=== PATIENT | female | born 1990 | race Caucasian/White ===

== ENCOUNTER 2022-08-16 10:33 | Emergency (ER) | payer BC ==
--- OUTSIDE RECORDS SUMMARY | 2022-08-16 10:37 | XMS REPORT | Continuity of Care Document ---
:1990 Author Organization [facility] t Address [address] [place] [place] [address] Care Team Providers Name Role Phone Gunnar TROY, [facility] Primary Care Physician [phone] Con Peralta MD Attending Clinician MD CNO PERALTA Attending Clinician Unavailable Shasta Steward MD Attending Clinician Kalpana Reynolds MD Attending Clinician [phone] MD KALPANA REYNOLDS Attending Clinician Unavailable MD CON PERALTA Admitting Clinician Unavailable MD KALPANA REYNOLDS Admitting Clinician Unavailable Payers Payer Name Policy Type Policy Number Effective Date Expiration Date S ource Problems This patient has no known problems. Allergies, Adverse Reactions, Alerts Allergy Allergy Status Severity Reaction(s) Onset Inactive Treating Comm ents Source Name Type Date Date Clinician Ciproflo Propensi Active Rash 2020-04 [facility] xacin ty to [facility] adverse 00:00: Hospita reaction 00 l s to drug Doxycycl Propensi Active Rash 2020-04 [facility] ine ty to 0-06 [facility] adverse 00:00: Hospita reaction 00 l s to drug Social History Social Habit Start Date Stop Date Quantity Comments Source Gender identity [facility] Alcohol intake 2021-04-13 2021-04-13 Current [facility] 00:00:00 00:00:00 non-drinker of Hospital alcohol (finding) History of Social 2021-04-13 2021-04-[address] function 00:00:00 00:00:00 Hospital Tobacco use and 2017-02-19 2017-02-19 Smokeless [facility] exposure 00:00:00 00:00:00 tobacco non-user Hospital Sex Assigned At [birth year] [facility] 00[facility] Smoking Status Start Date Stop Date Source Never smoked tobacco [facility] Medications Ordered Filled Start Stop Current Ordering Indication Dosage Frequency Signature Comments Components Source Medication Medication Date Date Medication? Clinician (SIG) Name Name venlafaxine Yes 75mg QD Take 75 mg [facility] (EFFEXOR) 1-[address] 75 MG 07:23: daily. Hospita tablet 01 l venlafaxine Yes 75mg QD Take 75 mg [facility] (EFFEXOR) 1-[address] 75 MG 07:23: daily. Hospita tablet 01 l norethindro 2020-04 Yes .35mg Take 0.35 [facility] ne 0-[address] (MICRONOR) 08:26: mouth. Hospi ta 0.35 mg 39 l tablet norethindro 2020-04 Yes .35mg Take 0.35 [facility] ne 0-[address] (MICRONOR) 08:26: mouth. Hospi ta 0.35 mg 39 l tablet tobramycin 2020-04 Yes INSTILL Meth aminta (TOBREX) 0-03 ONE (1) st 0.3 % drops 00:00: DROP TO Hos dagoberto 00 LEFT EYE l THREE TIMES A DAY FOR 4 DAYS. tobramycin 2020-04 Yes INSTILL Meth aminta (TOBREX) 0-03 ONE (1) st 0.3 % drops 00:00: DROP TO Hos dagoberto 00 LEFT EYE l THREE TIMES A DAY FOR 4 DAYS. polymyxin B Yes APPLY 2 Met [facility] sulf-trimet 9-[address] hoprim 00:00: (OPHTHALMI Hospi ta (POLYTRIM) 00 C (EYE)) l 10,000 EVERY 2 unit- 1 HOURS FOR mg/mL drops 7 DAYS USE ON BOTH EYES. polymyxin B Yes APPLY 2 Met [facility] sulf-trimet 9-[address] hoprim 00:00: (OPHTHALMI Hospi ta (POLYTRIM) 00 C (EYE)) l 10,000 EVERY 2 unit- 1 HOURS FOR mg/mL drops 7 DAYS USE ON BOTH EYES. Vyvanse 10 Yes 1{capsu QD Take 1 Me [facility] mg capsule 9-18 le} capsule by st 00:00: mouth Hospita 00 daily. l Vyvanse 10 Yes 1{capsu QD Take 1 Me [facility] mg capsule 9-18 le} capsule by st 00:00: mouth Hospita 00 daily. l Vital Signs Vital Name Observation Time Observation Value Comments Source Systolic blood 2021-04-13 12:19:00 132 mm[Hg] [facility] pressure Diastolic blood 2021-04-13 12:19:00 75 mm[Hg] [facility] pressure Respiratory rate 2021-04-13 12:19:00 18 /min [facility] Oxygen saturation in 2021-04-13 12:19:00 98 /min [facility] Arterial blood by Pulse oximetry Heart rate 2021-04-13 10:39:00 101 /min [facility] Body temperature 2021-04-13 10:39:00 37.06 [facility] Body height 2021-04-13 10:36:00 162.6 cm [facility] Body weight 2021-04-13 10:36:00 142.883 kg [facility] BMI 2021-04-13 10:36:00 54.07 kg/m2 [facility] Procedures Procedure Date / Time Performing Clinician Source Performed XR NECK SOFT TISSUE 2021-04-13 12:31:49 [facility] GROUP A STREP, RAPID 2021-04-13 12:16:00 [facility] ANTIGEN COVID-19 QUALITATIVE 2021-04-13 12:16:00 [facility] RT-PCR STREP SCREEN CULTURE 2021-04-13 12:16:00 [facility] ED REFERRAL TO [place] 2021-01-14 15:01:51 Kalpana Reynolds [facility] JESSICA PHYSICIAN [place] SILVA CT LUMBAR SPINE WO 2021-01-14 14:37:42 Kalpana Reynolds [facility] CONTRAST [place] CT ABDOMEN PELVIS WO 2021-01-14 14:31:56 Kalpana Reynolds [facility] CONTRAST [place] URINE CULTURE 2021-01-14 13:34:00 Kalpana Reynolds [facility] osceleste [facility]ru[facility] HC COMPLETE BLD COUNT 2021-01-14 13:24:00 Reynolds [facility] W/AUTO DIFF [place] COMPREHENSIVE METABOLIC 2021-01-14 13:24:00 Kalpana Reynolds [facility] PANEL [place] HCG QUALITATIVE, SERUM 2021-01-14 13:24[facility] [place] TR[facility]IN 2021-01-14 13:24:00 Kalpana Reynolds [facility] osceleste [facility] ESTIMATED GFR 2021-01-14 13:24:00 Kalpana Reynolds [facility] [place] COVID-19 QUALITATIVE 2021-01-14 13:10:00 Kalpana Reynolds [facility] RT-PCR [place] URINALYSIS SCREEN AND 2021-01-14 13:09:00 Rodolfo [facility] MICROSCOPY, WITH REFLEX [place] TO CULTURE ECG 12-LEAD 2021-01-14 12:51:22 [facility] ED PRELIMINARY 2021-01-14 12:37:30 Kalpana Reynolds [facility] INTERPRETATION [place] Plan of Care Planned Activity Planned Date Details Comments Source Future Scheduled 2022-07-14 Hepatitis C [facility] Test 05:40:05 screening (procedure) [code = 571275197] Future Scheduled 2022-07-14 Screening for [facility] Test 05:40:05 malignant neoplasm of cervix (procedure) [code = 396662805] Future Scheduled 2022-07-14 COVID-19 VACCINE (3 Meth [facility] Test 05:40:05 - Booster for Pfizer series) [code = COVID-19 VACCINE (3 - Booster for Pfizer series)] Future Scheduled 2022-07-14 INFLUENZA VACCINE [facility] Test 05:40:05 [code = INFLUENZA VACCINE] Future Scheduled 2021-04-14 [facility] Test 23:18:48 screening (procedure) [code = 976696026] Future Scheduled 2021-04-14 Screening for [facility] Test 23:18:48 malignant neoplasm of cervix (procedure) [code = 650097924] Future Scheduled 2021-04-14 INFLUENZA VACCINE [facility] Test 23:18:48 [code = INFLUENZA VACCINE] Future Scheduled 2021-04-14 COVID-19 VACCINE (3 Meth [facility] Test 23:18:48 - Booster for Pfizer series) [code = COVID-19 VACCINE (3 - Booster for Pfizer series)] Encounters Start End Encounter Admission Attending Care Care Encounter Source Date/Time Date/Time Type Type Clinicians Facility Department ID 2021-05-18 2021-05-18 Outpatient [facility] 00:00:00 00:00:00 UE- 07 2021-05-11 2021-05-11 [facility] 00:00:00 00:00:00 UE-2021-04-13 2021-04-13 Emergency Peralta, 1.2.840.1 [id number] Method[facility] 05:57:00 07:23:[address] 3.430.2.7 Hospit a .3.087323 l .8 2021-04-13 2021-04-13 Outpatient FBCOVID [facility]OVID [id number] 3-2 [facility] 00:00:00 00:00:00 [id number] 2021-01-26 2021-01-26 Transcribe Shasta Steward 1.2.840.1 [id number] [facility] 00:00:00 00:00:[address] 3.430.2.7 Hospit a .3.570644 l .8 2021-01-14 2021-01-14 Emergency Reynolds, 1.2.840.1 [id number] [facility] 07:20:00 10:21:[address] [place] 3.430.2.7 Hospit a .3.048229 l .8 2021-01-14 2021-01-14 Travel 1.2.840.1 [id number] [facility] 00:00:00 00:00:[address] 3.430.2.7 0.2.7.3.698 spita .3.919393 084.8 l .8 Results Test Description Test Time Test Comments Results Result Comments Source SARS-CoV-2 (COVID-19) RNA [Presence] in Respiratory sp ecimen by 2021-04-13 12:26:22 KRISTOPHER with probe detection Test Item Value Reference Range Interpretation Comme nts SARS-CoV-2 (COVID-19) RNA [Presence] in Respiratory Detected No t-Detected specimen by KRISTOPHER with probe detection (test code = 87248-4) Whether patient is employed in a healthcare setting (test code = 73990-7) Whether the patient has symptoms related to condition of interest (test code = 98921-3) Patient was hospitalized because of this condition (test code = 98980-0) Whether the patient was admitted to intensive care unit (ICU) for condition of interest (test code = 55575-6) Whether patient resides in a congregate care setting (test code = 62014-0) [facility] [id number] 01:44:19 Test Item Value Reference Range Interpretation Comments Urine culture Mixed derrick Specimen isolate (test <=10-3 col/cc InformationSp ecimen code = 53327-1) Source: Urin eSpecimen Site: Clean cat [facility] 12 [id number] 14:07:10 Test Item Value Reference Range Interpretation Comments Ventricular rate (test code = 253) Atrial rate (test code = 255) NH interval (test code = 266) QRSD interval (test code = 260) QT interval (test code = 264) QTC interval (test code = 265) P axis 1 (test code = 267) QRS axis 1 (test code = 268) T wave axis (test code = 270) EKG impression (test Normal sinus code = 273) rhythm-Cannot rule out Anterior infarct , age undetermined-Abnormal ECG-No previous ECGs available-Electronica lly Signed By Anthony Guajardo MD ([id number]) on 01/14/2021 9:07:07 [facility] [Presence] in Respiratory specimen by KRISTOPHER with probe [id number] 13:42:53 Test Item Value Reference Range Interpretation Comments SARS-CoV-2 (COVID-19) RNA Not detected Not-Detected [Presence] in Respiratory specimen by KRISTOPHER with probe detection (test code = 78527-9) Whether patient is employed in a healthcare setting (test code = 49772-1) Whether the patient has symptoms related to condition of interest (test code = 34675-9) Patient was hospitalized because of this condition (test code = 07153-3) Whether the patient was admitted to intensive care unit (ICU) for condition of interest (test code = 54537-0) Whether patient resides in a congregate care setting (test code = 89033-0) [facility]
[2022-08-16 11:25] LABS: Absolute Lymphocytes (CBC) 1.9 K/uL (0.7-4.9); Hematocrit 34.7 % (36.0-45.0); Lymphocytes % 12.4 % (15.3-44.8); MCV 66.9 fL (80-100); MPV 7.7 fL (7.6-11.3); RBC Red Blood Cell Count 5.18 M/uL (3.86-4.86)
[2022-08-16] MEDS ORDERED: dexAMETHasone 10 MG/ML VIAL ONE ×2 (11:41→16:00)
[2022-08-16] MEDS ORDERED: DIAZEPAM 5 MG TABLET ONE (11:41)
[2022-08-16] MEDS ORDERED: MORPHINE 4 MG/ML SYR ONE (11:41)
[2022-08-16] MEDS ORDERED: ONDANSETRON 4 MG/2 ML VIAL ONE ×3 (11:42→13:57)
[2022-08-16] MEDS ORDERED: KETOROLAC 30 MG/ML INJ ONE (11:42)
[2022-08-16] MEDS ORDERED: NA CHLORIDE 0.9% 1,000 ML ONE (11:42)
[2022-08-16 11:49] LABS: Albumin 3.3 g/dL (3.4-5.0); Bilirubin Total 0.4 mg/dL (0.2-1.0); Potassium 3.8 mEq/L (3.5-5.1); Protein, Total 7.4 g/dL (6.4-8.2)
[2022-08-16 12:36] LABS: Anisocytosis 2+; Blood Morphology Comment NOTED (NOT SEEN); Hypochromasia 2+; Platelet Estimate ADEQ; White Blood Cell Scan OK (OK)
[2022-08-16] MEDS ORDERED: HYDROMORPHONE HCL 1 MG/ML INJ ONE ×3 (13:52→16:01)
--- NOTE | 2022-08-16 15:42 | RAD REPORT ---
EXAM DESCRIPTION: CT - Spine Lumbar Wo Con - 08/16/2022 2:01 pm CLINICAL HISTORY: PAIN COMPARISON: No comparisons TECHNIQUE: Axial noncontrast CT imaging of the lumbar spine was performed with coronal and sagittal re-formatted images. All CT scans are performed using dose optimization technique as appropriate and may include automated exposure control or mA/KV adjustment according to patient size. FINDINGS: No acute lumbar spine fracture seen. No aggressive marrow pattern or malalignment. Paraspinal tissues are normal in thickness. No paraspinal abscess or hematoma seen. Intervertebral disc disease assessment is inherently limited by CT. Within these limitations, no high -grade canal stenosis suspected. A right subarticular disc protrusion is noted at L5-S1, narrowing th e right lateral recess. Endplate remodeling. Bilateral mild neural foraminal narrowing at that level. IMPRESSION: No acute osseous abnormality. Right subarticular disc protrusion at L5-S1, narrowing the right lateral recess, possibly impinging u raquel the descending right S1 nerve root. Please correlate for symptoms in that distribution. Bilateral mild neural foraminal narrowing at that level. Consider MRI follow-up for assessment of disc disease if clinically desired.
--- NOTE | 2022-08-16 16:11 | EDPHYS ---
Physician Documentation [facility] Name: Christen Nicholas Age: 32 yrs Sex: Female : 1990 Arrival Date: 08/16/2022 Time: 10:33 Bed 11 Private MD: REAL Physician Efra Ramírez HPI: 08/16 15:49 This 32 yrs old Female presents to ER via EMS with complaints of Back Pain. kelly 15:49 The patient presents with pain that is acute. The symptoms are located in the low back. kelly Onset: The symptoms/episode began/occurred 3 day(s) ago. The pain radiates to the right mid back and right low back. Associated signs and symptoms: Pertinent positives: nausea. The problem was sustained during a fall, while walking. Modifying factors: The patient symptoms are alleviated by remaining still, the patient symptoms are aggravated by any movement, bending. Severity of symptoms: At their worst the symptoms were moderate, in the emergency department the symptoms are unchanged. The patient has not experienced similar symptoms in the past. [employer]ATING [employer] METAL: 10:37 LMP 08/01/2022, Pt reports menstrual periods are irregular aa5 Historical: - Allergies: 10:47 Cipro; aa5 - PMHx: 10:47 PCOS; Anxiety; Depressive disorder; Back problems (pelvic tilt and bulging disc); aa5 - PSHx: 10:47 Bone Marrow Biopsy; Pseudotumor Cerebri; aa5 - Immunization history:: Adult Immunizations unknown. - Social history:: Smoking status: Patient denies any tobacco usage or history of. ROS: 15:50 Constitutional: Negative for fever, chills, and weight loss, Eyes: Negative for injury, kelly pain, redness, and discharge, ENT: Negative for injury, pain, and discharge, Neck: Negative for injury, pain, and swelling, Cardiovascular: Negative for chest pain, palpitations, and edema, Respiratory: Negative for shortness of breath, cough, wheezing, and pleuritic chest pain, Abdomen/GI: Negative for abdominal pain, nausea, vomiting, diarrhea, and constipation, : Negative for injury, bleeding, discharge, and swelling, MS/Extremity: Negative for injury and deformity, Skin: Negative for injury, rash, and discoloration, Neuro: Negative for headache, weakness, numbness, tingling, and seizure, Psych: Negative for depression, anxiety, suicide ideation, homicidal ideation, and hallucinations, Allergy/Immunology: Negative for hives, rash, and allergies, Endocrine: Negative for neck swelling, polydipsia, polyuria, polyphagia, and marked weight changes, Hematologic/Lymphatic: Negative for swollen nodes, abnormal bleeding, and unusual bruising. 15:50 Back: Positive for decreased range of motion, pain at rest, pain with movement, radiated pain, of the right low back. Exam: 15:50 Constitutional: This is a well developed, well nourished patient who is awake, alert, kelly and in no acute distress. Head/Face: Normocephalic, atraumatic. Eyes: Pupils equal round and reactive to light, extra-ocular motions intact. Lids and lashes normal. Conjunctiva and sclera are non-icteric and not injected. Cornea within normal limits. Periorbital areas with no swelling, redness, or edema. ENT: Nares patent. No nasal discharge, no septal abnormalities noted. Tympanic membranes are normal and external auditory canals are clear. Oropharynx with no redness, swelling, or masses, exudates, or evidence of obstruction, uvula midline. Mucous membranes moist. Neck: Trachea midline, no thyromegaly or masses palpated, and no cervical lymphadenopathy. Supple, full range of motion without nuchal rigidity, or vertebral point tenderness. No Meningismus. Chest/axilla: Normal chest wall appearance and motion. Nontender with no deformity. No lesions are appreciated. Cardiovascular: Regular rate and rhythm with a normal S1 and S2. No gallops, murmurs, or rubs. Normal PMI, no JVD. No pulse deficits. Respiratory: Lungs have equal breath sounds bilaterally, clear to auscultation and percussion. No rales, rhonchi or wheezes noted. No increased work of breathing, no retractions or nasal flaring. Abdomen/GI: Soft, non-tender, with normal bowel sounds. No distension or tympany. No guarding or rebound. No evidence of tenderness throughout. Back: No spinal tenderness. No costovertebral tenderness. Full range of motion. Skin: Warm, dry with normal turgor. Normal color with no rashes, no lesions, and no evidence of cellulitis. MS/ Extremity: Pulses equal, no cyanosis. Neurovascular intact. Full, normal range of motion. Neuro: Awake and alert, GCS 15, oriented to person, place, time, and situation. Cranial nerves II-XII grossly intact. Motor strength 5/5 in all extremities. Sensory grossly intact. Cerebellar exam normal. Normal gait. Psych: Awake, alert, with orientation to person, place and time. Behavior, mood, and affect are within normal limits. Vital Signs: 10:37 BP 132 / 81; Pulse 84; Resp 16 S; Temp 98(TE); Pulse Ox 98% on R/A; Weight 158.76 kg aa5 (R); Height 5 ft. 4 in. (R); Pain 5/10; 12:40 BP 148 / 79; Pulse 81; Resp 17 S; Pulse Ox 95% on R/A; Pain 6/10; aa5 13:51 BP 152 / 80; Pulse 81; Resp 18; Pulse Ox 97% on R/A; Pain 10/10; mb9 16:01 BP 146 / 78; Pulse 78; Resp 16; Pulse Ox 97% on R/A; Pain 10/10; mb9 10:37 Body Mass Index 60.08 (158.76 kg, 162.56 cm) aa5 10:37 Pain Scale: Adult aa5 12:40 Pain Scale: Adult aa5 13:51 Pain Scale: Adult mb9 16:01 Pain Scale: Adult mb9 10:37 8/10 with movement aa5 MDM: 10:46 Patient medically screened. kelly 15:52 Differential diagnosis: closed fracture, contusion, tendonitis, chronic back pain, kelly Epidural or Perispinal Abcess Epidural or Perispinal Bleed Fatigue Fracture Ligament Injury Neoplasm Osteoarthritis Pyelonephritis Renal Infarction ruptured disc, sprain, Ureterolithiasis vertebral fracture. Data reviewed: vital signs, nurses notes, lab test result(s), radiologic studies, CT scan. Consideration of Admission/Observation Escalation of care including admission/observation considered. I considered the following discharge prescriptions or medication management in the emergency department Medications were administered in the Emergency Department. See MAR. Test considered but Not performed: MRI: lumbar mri. Care significantly affected by the following chronic conditions: pcos, anxiety , depression, cbp. Counseling: I had a detailed discussion with the patient and/or guardian regarding: the historical points, exam findings, and any diagnostic results supporting the discharge/admit diagnosis, lab results, radiology results. 16:39 ED course: DW DR DONALDSON, NO STONE, NO HYDRONEPHROSIS. [facility] 08/16 10:51 Order name: CBC with Diff; Complete Time: 13:42 kelly 08/16 10:51 Order name: Comprehensive Metabolic Panel; Complete Time: 13:42 kelly 08/16 10:51 Order name: Urinalysis w/ reflexes; Complete Time: 16:35 kelly 08/16 10:51 Order name: PREGU; Complete Time: 16:35 kelly 08/16 10:57 Order name: Test, Serum; Complete Time: 13:42 aa5 08/16 11:43 Order name: CBC Smear Scan; Complete Time: 13:42 EDMS 08/16 16:30 Order name: Urine Culture EDMS 08/16 13:43 Order name: CT Lumbar Spine Wo Con; Complete Time: 15:46 kelly Administered Medications: 11:39 Drug: NS 0.9% IV 1000 ml Route: IV; Rate: 1 bolus; Site: left antecubital; aa5 11:40 Drug: Ondansetron IVP 4 mg Route: IVP; Site: left antecubital; aa5 11:40 Drug: Diazepam PO 10 mg Route: PO; aa5 11:42 Drug: Decadron - Dexamethasone IVP 10 mg Route: IVP; Site: left antecubital; aa5 11:44 Drug: Ketorolac IVP 30 mg Route: IVP; Site: left antecubital; aa5 11:45 Drug: morphine IVP or IV 4 mg Route: IVP; Infused Over: 4 mins; Site: left antecubital; aa5 13:48 Drug: Ondansetron IVP 4 mg Route: IVP; Site: left antecubital; mb9 13:53 Drug: HYDROmorphone IVP 1 mg Route: IVP; Site: left antecubital; mb9 15:53 Drug: Decadron - Dexamethasone IVP 10 mg Route: IVP; Site: left antecubital; mb9 15:57 Drug: HYDROmorphone IVP 1 mg Route: IVP; Site: left antecubital; mb9 16:40 Drug: Rocephin IV 1 grams Route: IV; Rate: per protocol; Site: left antecubital; mb9 Disposition Summary: 08/16/22 16:11 Discharge Ordered Location: Home [facility] Problem: new kelly Symptoms: have improved kelly Condition: Fair kelly Diagnosis - Sciatica, right side kelly - Other intervertebral disc disorders, lumbar region - L5-S1 kelly - Obesity, unspecified kelly - Other injury of muscle, fascia and tendon of lower back kelly - Low back pain kelly - Elevated white blood cell count, unspecified kelly - UTI/ Urinary tract infection, site not specified kelly Followup: kelly - With: Private Physician - When: 2 - 3 days - Reason: Recheck today's complaints, Continuance of care, Re-evaluation by your physician Followup: kelly - With: - When: 2 - 3 days - Reason: Recheck today's complaints, Re-evaluation by your physician Discharge Instructions: - Discharge Summary Sheet kelly - Acute Back Pain, Adult kelly - Herniated Disk kelly - Musculoskeletal Pain kelly - Obesity, Adult kelly - Sciatica kelly - Urinary Tract Infection, Adult kelly - Herniated Disk, [id number] [facility] Forms: - Medication Reconciliation Form [facility] - Thank You Letter kelly - Antibiotic Education kelly - Prescription Opioid Use [facility] Prescriptions: - acetaminophen-codeine 300-30 mg Oral tablet - take 2 tablet by ORAL route every 6 hours as needed for pain; 24 tablet; kelly Refills: 0, Product Selection Permitted - dexamethasone 2 mg Oral tablet - take 2 tablet by ORAL route every 12 hours; 10 tablet; Refills: 0, Product [facility] Selection Permitted - Augmentin 875-125 mg Oral Tablet - take 1 tablet by ORAL route every 12 hours for 10 days; 14 tablet; Refills: 0, [facility] Product Selection Permitted - Valium 5 mg Oral Tablet - take 1 tablet by ORAL route every 8 hours As needed; 20 tablet; Refills: 0, [facility] Product Selection Permitted - Diclofenac Sodium 75 mg Oral tablet,delayed release (DR/EC) - take 1 tablet by ORAL route 2 times per day; 20 tablet; Refills: 0, Product [facility] Selection Permitted Signatures: Dispatcher [employer] Efra Kong MD MD cha Calderon, Audri RN RN aa5 Katie Lange RN RN mb9
--- NOTE | 2022-08-16 16:11 | ER ---
Nurse's Notes [facility] Name: Christen Nicholas Age: 32 yrs Sex: Female : 1990 Arrival Date: 08/16/2022 Time: 10:33 Bed 11 Private MD: Diagnosis: Sciatica, right side;Other intervertebral disc disorders, lumbar [id number];Obesity, unspecified;Other injury of muscle, fascia and tendon of lower back;Low back pain;Elevated white blood cell count, unspecified;UTI/ Urinary tract infection, site not specified Presentation: 08/16 10:37 Chief complaint: Patient states: "I tweaked my back about a week ago and since then aa5 it's been gradually getting worse". Pt c/o right low back pain radiating to right buttocks. Pt reports she has been taking Ibuprofen and methocarbamol without much relief. 10:37 Coronavirus screen: At this time, the client does not indicate any symptoms associated aa5 with coronavirus-19. Ebola Screen: Patient denies travel to an Ebola-affected area in the 21 days before illness onset. Initial Sepsis Screen: Does the patient meet any 2 criteria? No. Patient's initial sepsis screen is negative. Does the patient have a suspected source of infection? No. Patient's initial sepsis screen is negative. Risk Assessment: Do you want to hurt yourself or someone else? Patient reports no desire to harm self or others. Onset of symptoms was August 2022. 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 - Social history:: Smoking status: Patient denies any tobacco usage or history of. Screenin:40 [facility] ED Fall Risk Assessment (Adult) History of falling in the last 3 months, aa5 including since admission No falls in past 3 months (0 pts) Confusion or Disorientation No (0 pts) Intoxicated or Sedated No (0 pts) Impaired Gait No (0 pts) Mobility Assist Device Used No (0 pt) Altered Elimination No (0 pt) Score/Fall Risk Level 0 - 2 = Low Risk Oriented to surroundings, Maintained a safe environment, Educated pt \\T\\ family on fall prevention, incl call for assistance when getting out of bed. Abuse screen: Denies threats or abuse. Nutritional screening: No deficits noted. Tuberculosis screening: No symptoms or risk factors identified. Assessment: 10:37 General: Appears uncomfortable, Behavior is calm, cooperative. Pain: Complains of pain aa5 in right low back Pain radiates to right gluteus lita Pain currently is 8 out of 10 on a pain scale. Quality of pain is described as sharp, shooting, Is continuous, Aggravated by increased activity, repositioning, Noted to be resistant to movement. Neuro: Level of Consciousness is awake, alert, obeys commands, Oriented to person, place, time, situation. Cardiovascular: Heart tones S1 S2 present Rhythm is regular. Respiratory: Airway is patent Respiratory effort is even, unlabored, Respiratory pattern is regular, symmetrical. GI: Abdomen is round Bowel sounds present X 4 quads. Abd is soft and non tender X 4 quads. Patient currently denies nausea, vomiting. : No signs and/or symptoms were reported regarding the genitourinary system. EENT: No signs and/or symptoms were reported regarding the EENT system. Derm: Skin is pink, warm \\T\\ dry. Musculoskeletal: Range of motion: intact in all extremities. 11:37 Reassessment: Patient is alert, oriented x 3, equal unlabored respirations, skin aa5 warm/dry/pink. Contacted lab twice about test result, Chiquita from lab states 10 min until results are posted. Spoke to patient about need to wait on test before administering medications, pt gave verbal consent to receive medications before test results. . 11:39 Reassessment: Patient is alert, oriented x 3, equal unlabored respirations, skin aa5 warm/dry/pink. Significant other at bedside . 12:40 Reassessment: Patient is alert, oriented x 3, equal unlabored respirations, skin aa5 warm/dry/pink. pt reports only slight improvement of pain, rates pain 6/10 on a pain scale. . 13:41 Reassessment: pt states pain has not improved and is 10/10. Darrell TROY, notified. New mb9 orders at this time. 14:45 Reassessment: Patient and/or family updated on plan of care and expected duration. Pain mb9 level reassessed. Patient is alert, oriented x 3, equal unlabored respirations, skin warm/dry/pink. Patient states feeling better. Patient states symptoms have improved. 17:01 Reassessment: No changes from previously documented assessment. Patient and/or family mb9 updated on plan of care and expected duration. Pain level reassessed. Patient is alert, oriented x 3, equal unlabored respirations, skin warm/dry/pink. Vital Signs: 10:37 BP 132 / 81; Pulse 84; Resp 16 S; Temp 98(TE); Pulse Ox 98% on R/A; Weight 158.76 kg aa5 (R); Height 5 ft. 4 in. (R); Pain 5/10; 12:40 BP 148 / 79; Pulse 81; Resp 17 S; Pulse Ox 95% on R/A; Pain 6/10; aa5 13:51 BP 152 / 80; Pulse 81; Resp 18; Pulse Ox 97% on R/A; Pain 10/10; mb9 16:01 BP 146 / 78; Pulse 78; Resp 16; Pulse Ox 97% on R/A; Pain 10/10; mb9 10:37 Body Mass Index 60.08 (158.76 kg, 162.56 cm) aa5 10:37 Pain Scale: Adult aa5 12:40 Pain Scale: Adult aa5 13:51 Pain Scale: Adult mb9 16:01 Pain Scale: Adult mb9 10:37 8/10 with movement aa5 ED Course: 10:37 Patient arrived in ED. bd 10:37 Arm band placed on Patient placed in an exam room, on a stretcher. aa5 10:37 Patient has correct armband on for positive identification. Bed in low position. Call aa5 light in reach. Side rails up X2. 10:45 Kia Frazier, TAMIKO is Primary Nurse. aa5 10:46 Efra Ramírez MD is Attending Physician. [facility] 10:46 Triage completed. aa5 11:05 Initial lab(s) drawn, by me, sent to lab. Missed attempt(s): 22 gauge in right forearm. aa5 Bleeding controlled, band aid applied, catheter tip intact. 11:16 Inserted saline lock: 20 gauge in left antecubital area, using aseptic technique. aa5 14:02 CT Lumbar Spine Wo Con In Process Unspecified. EDMS 16:11 Kelton Issa MD is Referral Physician. [facility] 16:18 Urinalysis w/ reflexes Sent. aa5 16:18 PREGU Sent. aa5 16:32 Urine Culture Sent. mb9 17:01 No provider procedures requiring assistance completed. IV discontinued, intact, mb9 bleeding controlled, No redness/swelling at site. Pressure dressing applied. Administered Medications: 11:39 Drug: NS 0.9% IV 1000 ml Route: IV; Rate: 1 bolus; Site: left antecubital; aa5 11:40 Drug: Ondansetron IVP 4 mg Route: IVP; Site: left antecubital; aa5 11:40 Drug: Diazepam PO 10 mg Route: PO; aa5 11:42 Drug: Decadron - Dexamethasone IVP 10 mg Route: IVP; Site: left antecubital; aa5 11:44 Drug: Ketorolac IVP 30 mg Route: IVP; Site: left antecubital; aa5 11:45 Drug: morphine IVP or IV 4 mg Route: IVP; Infused Over: 4 mins; Site: left antecubital; aa5 13:48 Drug: Ondansetron IVP 4 mg Route: IVP; Site: left antecubital; mb9 13:53 Drug: HYDROmorphone IVP 1 mg Route: IVP; Site: left antecubital; mb9 15:53 Drug: Decadron - Dexamethasone IVP 10 mg Route: IVP; Site: left antecubital; mb9 15:57 Drug: HYDROmorphone IVP 1 mg Route: IVP; Site: left antecubital; mb9 16:40 Drug: Rocephin IV 1 grams Route: IV; Rate: per protocol; Site: left antecubital; mb9 Medication: 17:01 VIS not applicable for this client. mb9 Outcome: 16:11 Discharge ordered by . kelly 17:01 Discharged to home via wheelchair. mb9 17:01 Condition: stable 17:01 Discharge instructions given to patient, Instructed on discharge instructions, follow up and referral plans. Demonstrated understanding of instructions, follow-up care, medications, Prescriptions given X X5 17:02 Patient left the ED. mb9 Signatures: Dispatcher [employer] EDMS Maris Mott Corey, MD MD cha Calderon, Audri RN RN aa5 Nazario, Katie Porter RN RN mb9
[2022-08-16 16:26] LABS: Specific Gravity 1.018 (1.005-1.030); Urine Bacteria <20 /HPF (<20); Urine Bilirubin NEGATIVE (Negative); Urine Blood 3+ (OVER) (Negative); Urine Clarity Clear (Clear); Urine Color Light-Yellow (Yellow); Urine Crystals Unidentified Few /HPF (None Seen); Urine Glucose NEGATIVE (Negative); Urine Mucus Slight /HPF (None Seen); Urine Protein NEGATIVE (Negative); Urine RBC >50 /HPF (None Seen); Urine Urobilinogen Normal (Normal); Urine pH 6.5 (5.0-7.0)
[2022-08-16] MEDS ORDERED: CEFTRIAXONE 1000 MG/VIAL ONE (17:01)
[2022-08-16 17:37] VITALS: TEMP 98
[2022-08-16 17:49] VITALS: O2SAT 97
[2022-08-16 17:50] VITALS: BP 146/78
== END 2022-08-16 17:02 | disposition home or self-care (01) ==
LOC: ER 10:33
DX: M54.31 Sciatica, right side (principal); M51.87 Other intervertebral disc disorders, lumbosacral region; N39.0 Urinary tract infection, site not specified; D72.829 Elevated white blood cell count, unspecified; S39.82XA Other specified injuries of lower back, initial encounter; Z88.1 Allergy status to other antibiotic agents
CPT/HCPCS: 87088; 85025; 81001; 87086; 36415; 84703; 81025; 80053; 72131; 96375; 96374; 99284; J1100 ×2; J1170 ×2; J2405 ×2; J7030; J0696

== ENCOUNTER 2024-06-25 00:08 | Emergency (ER) | payer BC, SELFPAY ==
[2024-06-25] MEDS ORDERED: KETOROLAC 30 MG/ML INJ ONE (00:32)
[2024-06-25] MEDS ORDERED: ACETAMINOPHEN 500 MG TAB ONE (00:32)
[2024-06-25] MEDS ORDERED: BENZONATATE 100 MG CAP PO ONE (00:33)
[2024-06-25] MEDS ORDERED: ONDANSETRON 4 MG (ODT) TAB ONE (00:33)
[2024-06-25] MEDS ORDERED: GUAIFENESIN/CODEINE 5ML UCUP ONE (00:34)
[2024-06-25] MEDS ORDERED: predniSONE 20 MG TAB ONE (00:36)
[2024-06-25 01:21] LABS: Influenza A Ag Negative; Influenza B Ag Negative; SARS-CoV-2 Antigen Rapid Res Negative (Negative)
--- NOTE | 2024-06-25 01:52 | ER ---
Nurse's Notes [facility] Name: Christen Nicholas Age: 34 yrs Sex: Female : 1990 Arrival Date: 06/25/2024 Time: 00:08 Bed 6 Private MD: Diagnosis: Viral infection, unspecified Presentation: 06/25 00:23 Chief complaint: Patient states: I have been feeling bad since Tuesday. with coughing, bm8 fever congestion. Coronavirus screen: Vaccine status: Patient reports receiving the 2nd dose of the covid vaccine. At this time, the client does not indicate any symptoms associated with coronavirus-19. Ebola Screen: Patient negative for fever greater than or equal to 101.5 degrees Fahrenheit, and additional compatible Ebola Virus Disease symptoms Patient denies exposure to infectious person. Patient denies travel to an Ebola-affected area in the 21 days before illness onset. No symptoms or risks identified at this time. Initial Sepsis Screen: Does the patient meet any 2 criteria? No. Patient's initial sepsis screen is negative. Does the patient have a suspected source of infection? No. Patient's initial sepsis screen is negative. Risk Assessment: Do you want to hurt yourself or someone else? Patient reports no desire to harm self or others. Onset of symptoms was June 19, 2024. Care prior to arrival: Medication(s) given: Motrin, 600 mg, \T\ 2230. 00:23 Method Of Arrival: Ambulatory bm8 00:23 Acuity: DHRUV 4 bm8 Triage Assessment: 00:25 General: Appears in no apparent distress. comfortable, Behavior is calm, cooperative, bm8 appropriate for age. Pain: Complains of pain in generalized Pain currently is 5 out of 10 on a pain scale. EENT: Throat is reddened bilaterally with gag reflex present, Reports nasal congestion. Neuro: No deficits noted. Level of Consciousness is awake, alert, obeys commands, Oriented to person, place, time, situation, Appropriate for age. Cardiovascular: Denies chest pain, Heart tones S1 S2 present Capillary refill < 3 seconds in bilateral fingers Patient's skin is warm and dry. Respiratory: Airway is patent Respiratory effort is even, unlabored, Respiratory pattern is regular, symmetrical, Breath sounds are clear bilaterally. Respiratory: Reports cough that is non-productive, the patient has mild shortness of breath. GI: No signs and/or symptoms were reported involving the gastrointestinal system. : No signs and/or symptoms were reported regarding the genitourinary system. Derm: No signs and/or symptoms reported regarding the dermatologic system. Musculoskeletal: No signs and/or symptoms reported regarding the musculoskeletal system. 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 - Infectious Disease History:: Denies. - Social history:: Smoking status: Patient denies any tobacco usage or history of. Screenin:51 [facility] ED Fall Risk Assessment (Adult) History of falling in the last 3 months, bm8 including since admission No falls in past 3 months (0 pts) Confusion or Disorientation No (0 pts) Intoxicated or Sedated No (0 pts) Impaired Gait No (0 pts) Mobility Assist Device Used No (0 pt) Altered Elimination No (0 pt) Score/Fall Risk Level 0 - 2 = Low Risk Oriented to surroundings, Maintained a safe environment, Educated pt \T\ family on fall prevention, incl call for assistance when getting out of bed, Assessed \T\ reinforced patient's understanding of fall precautions, Hourly rounding (assess needs \T\ fall precautionary measures) done, Used ambulatory aids as needed (educated on \T\ assisted with), Used gait belt as appropriate. Abuse screen: Denies threats or abuse. Nutritional screening: No deficits noted. Tuberculosis screening: No symptoms or risk factors identified. Assessment: 01:51 Reassessment: Patient appears in no apparent distress at this time. Patient and/or bm8 family updated on plan of care and expected duration. Pain level reassessed. Patient is alert, oriented x 3, equal unlabored respirations, skin warm/dry/pink. Patient denies pain at this time. Patient states feeling better. Patient states symptoms have improved. Vital Signs: 00:23 BP 216 / 80; Pulse 117; Resp 18; Temp 99; Pulse Ox 99% ; Weight 154.22 kg; Height 5 ft. bm8 4 in. ; Pain 5/10; 00:54 BP 190 / 81; Pulse 110; ec2 01:51 BP 163 / 85; Pulse 98; Resp 18; Temp 98.5; Pulse Ox 94% ; Pain 0/10; bm8 00:23 Body Mass Index 58.36 (154.22 kg, 162.56 cm) bm8 00:23 Pain Scale: Adult bm8 01:51 Pain Scale: Adult bm8 [place] Coma Score: 01:51 Eye Response: spontaneous(4). Motor Response: obeys commands(6). Verbal Response: bm8 oriented(5). Total: 15. ED Course: 00:12 Patient arrived in ED. im 00:18 Milton Woodruff MD is Attending Physician. ec2 00:22 COVID swab sent to lab. Flu and/or RSV swab sent to lab. Strep swab sent to lab. vk 00:25 Triage completed. bm8 00:25 Arm band placed on right wrist. bm8 00:28 Group A Streptococcus Rapid Sent. vk 00:28 COVID-19 Ag + Flu A+B Ag Sent. vk 00:42 Francis Encarnacion, RN is Primary Nurse. bm8 01:02 CXR XRAY In Process Unspecified. EDMS 01:51 No provider procedures requiring assistance completed. Patient did not have IV access bm8 during this emergency room visit. 01:51 Patient has correct armband on for positive identification. Bed in low position. Side bm8 rails up X 1. Provided Education on: post er care. Client placed on continuous cardiac and pulse oximetry monitoring. NIBP monitoring applied. Pulse ox on. NIBP on. Door closed. Noise minimized. Administered Medications: 00:33 CANCELLED (Physician Discretion): [id number] mg IM once ec2 00:34 CANCELLED (Physician Discretion): [id number] mg PO once ec2 00:35 CANCELLED (Physician Discretion): dexamethasone 10 mg IM once ec2 00:42 Drug: Ondansetron Oral Disintegrating Tablet Oral Disintegrating Tablet 4 mg PO once bm8 Route: PO; 01:56 Follow up: Response: No adverse reaction bm8 00:42 Drug: Ketorolac IM 30 mg IM once Route: IM; Site: right deltoid; bm8 01:56 Follow up: Response: No adverse reaction bm8 00:42 Drug: predniSONE PO 40 mg PO once Route: PO; bm8 01:56 Follow up: Response: No adverse reaction bm8 00:43 Drug: Codeine-Guaifenesin PO Liquid (10 mg-100 mg/5 mL) 5 ml PO once Route: PO; bm8 01:56 Follow up: Response: No adverse reaction bm8 00:43 Drug: Acetaminophen PO 1000 mg PO once Route: PO; bm8 01:56 Follow up: Response: No adverse reaction bm8 00:43 Drug: Tessalon Perle PO 200 mg PO once Route: PO; bm8 01:56 Follow up: Response: No adverse reaction bm8 Medication: 01:51 VIS not applicable for this client. bm8 Outcome: 01:52 Discharge ordered by . ec2 02:05 Patient left the ED. bm8 Signatures: Dispatcher [employer] EDMS Lina Du Edwin, MD MD ec2 Nydia Pat Brad, RN RN bm8 Corrections: (The following items were deleted from the chart) 00:46 00:28 COVID-19 Ag + Flu A+B Ag+I.LAB.BRZ drawn and sent. charly EDMA 01:55 01:51 BP 119 / 70; Pulse 98bpm; Resp 18bpm; Pulse Ox 100%; Temp 98.5F; Pain 0/10, bm8 Adult; bm8
--- NOTE | 2024-06-25 01:52 | EDPHYS ---
Physician Documentation [facility] Name: Christen Nicholas Age: 34 yrs Sex: Female : 1990 Arrival Date: 06/25/2024 Time: 00:08 Bed 6 Private MD: ED Physician Milton Woodruff HPI: 06/25 00:35 This 34 yrs old Female presents to ER via Ambulatory with complaints of Flu ec2 Symptoms. 00:35 Patient arrives today for URI symptoms. Patient reports cough and congestion, body ec2 aches, sore throat. Reports otherwise some fevers as well. No vomiting, no diarrhea. Reports no abdominal pain. No difficulty breathing.. 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 - Infectious Disease History:: Denies. - Social history:: Smoking status: Patient denies any tobacco usage or history of. ROS: 00:35 Constitutional: as per hpi ec2 Exam: 00:35 Constitutional: GEN: NAD Head: atraumatic Eyes: EOMI Ears: External ears are normal. ec2 Mouth: Posterior pharyngeal erythema without exudates present. CV: tachycardia LUNGS: no respiratory distress ABD: non-distended, soft, nontender, no guarding SKIN: no evidence of rashes MSK: no evidence of trauma Vital Signs: 00:23 BP 216 / 80; Pulse 117; Resp 18; Temp 99; Pulse Ox 99% ; Weight 154.22 kg; Height 5 ft. bm8 4 in. ; Pain 5/10; 00:54 BP 190 / 81; Pulse 110; ec2 01:51 BP 163 / 85; Pulse 98; Resp 18; Temp 98.5; Pulse Ox 94% ; Pain 0/10; bm8 00:23 Body Mass Index 58.36 (154.22 kg, 162.56 cm) bm8 00:23 Pain Scale: Adult bm8 01:51 Pain Scale: Adult bm8 [place] Coma Score: 01:51 Eye Response: spontaneous(4). Motor Response: obeys commands(6). Verbal Response: bm8 oriented(5). Total: 15. MDM: 00:18 Medical Screening Exam initiated ec2 00:36 Data reviewed: vital signs, nurses notes. ED course: Patient arrives today for URI ec2 symptoms. Examination yields slight tachycardia otherwise nontoxic individual. Will obtain viral swabs, strep swab. Suspect viral infection. DDx included viral infection versus possible strep pharyngitis. Will treat the patient's symptoms as well.. 01:51 ED course: Viral swabs negative. On reassessment patient reports some improvement in ec2 symptoms. Will discharge home have the patient follow-up PCP. Return precautions given. Suspect viral infection.. 06/25 00:23 Order name: Group A Streptococcus Rapid; Complete Time: 01:24 ec2 06/25 00:23 Order name: COVID-19 Ag + Flu A+B Ag; Complete Time: 01:24 ec2 06/25 01:34 Order name: Throat Culture EDMS 06/25 00:27 Order name: CXR XRAY ec2 Administered Medications: 00:33 CANCELLED (Physician Discretion): [id number] mg IM once ec2 00:34 CANCELLED (Physician Discretion): [id number] mg PO once ec2 00:35 CANCELLED (Physician Discretion): dexamethasone 10 mg IM once ec2 00:42 Drug: Ondansetron Oral Disintegrating Tablet Oral Disintegrating Tablet 4 mg PO once bm8 Route: PO; 01:56 Follow up: Response: No adverse reaction bm8 00:42 Drug: Ketorolac IM 30 mg IM once Route: IM; Site: right deltoid; bm8 01:56 Follow up: Response: No adverse reaction bm8 00:42 Drug: predniSONE PO 40 mg PO once Route: PO; bm8 01:56 Follow up: Response: No adverse reaction bm8 00:43 Drug: Codeine-Guaifenesin PO Liquid (10 mg-100 mg/5 mL) 5 ml PO once Route: PO; bm8 01:56 Follow up: Response: No adverse reaction bm8 00:43 Drug: Acetaminophen PO 1000 mg PO once Route: PO; bm8 01:56 Follow up: Response: No adverse reaction bm8 00:43 Drug: Tessalon Perle PO 200 mg PO once Route: PO; bm8 01:56 Follow up: Response: No adverse reaction bm8 Disposition Summary: 06/25/24 01:52 Discharge Ordered Notes: Location: Home ec2 Condition: Stable ec2 Diagnosis - Viral infection, unspecified ec2 Followup: ec2 - With: Private Physician - When: - Reason: Re-evaluation by your physician Discharge Instructions: - Discharge Summary Sheet ec2 - Viral Illness, Adult ec2 Forms: - Work release form ec2 - Medication Reconciliation Form ec2 - Antibiotic Education ec2 - Prescription Opioid Use ec2 - Patient Portal Instructions ec2 - Leadership Thank You Letter ec2 Prescriptions: - codeine-guaifenesin 10-100 mg/5 mL Oral liquid - take 10 milliliter ORAL route every 6 hours as needed for flu symptoms; 100 ec2 milliliter; Refills: 0, Product Selection Permitted - Zofran 4 mg Oral Tablet - take 1 tablet ORAL route every 12 hours As needed; 20 tablet; Refills: 0, ec2 Product Selection Permitted - Prednisone 20 mg Oral Tablet - take 2 tablets ORAL route once daily for 5 days; 10 tablet; Refills: 0, Product ec2 Selection Permitted Signatures: Dispatcher [employer] EDMS Milton Woodruff MD MD ec2 Francis Encarnacion RN RN bm8 Corrections: (The following items were deleted from the chart) 00:23 00:23 Group A Streptococcus Rapid Sc+I.LAB.BRZ ordered. EDMI EDMS 00:23 00:23 COVID-19 Ag + Flu A+B Ag+I.LAB.BRZ ordered. EDMI EDMS 00:33 00:27 Ketorolac IM 30 mg IM once ordered. ec2 ec2 00:34 00:33 Ibuprofen PO 800 mg PO once ordered. ec2 ec2 00:35 00:33 Dexamethasone IM 10 mg IM once ordered. ec2 ec2 00:36 00:35 Constitutional: GEN: NAD Head: atraumatic Eyes: EOMI Ears: External ears are ec2 normal. Mouth: Posterior pharyngeal erythema without exudates present. CV: regular rate LUNGS: no respiratory distress ABD: non-distended, soft, nontender, no guarding SKIN: no evidence of rashes MSK: no evidence of trauma ec2 00:46 00:24 COVID-19 Ag + Flu A+B Ag+I.LAB.BRZ ordered. EDMS EDMS
[2024-06-25 02:40] VITALS: BP 163/85; TEMP 98.5; O2SAT 94
--- NOTE | 2024-06-25 05:44 | RAD REPORT ---
EXAM: XR Chest, 1 View CLINICAL HISTORY: COUGH TECHNIQUE: Frontal view of the chest. COMPARISON: No relevant prior studies available. FINDINGS: Lungs: Unremarkable. No consolidation. Pleural space: Unremarkable. No pneumothorax. Heart: Unremarkable. No cardiomegaly. Mediastinum: Unremarkable. Normal mediastinal contour. Bones/joints: Unremarkable. No acute fracture. IMPRESSION: No acute disease. Electronically signed by: Brian Anguiano MD 06/25/2024 01:34 AM CDT RP Due to temporary technical issues with the PACS/[employer] reporting system, reports are being meg d by the in-house radiologist without review as a courtesy to ensure prompt reporting the interpreting radiologist is fully responsible for the content of the report. Transcribed Date/Time: 06/25/2024 5:44 AM
== END 2024-06-25 02:05 | disposition home or self-care (01) ==
LOC: ER 00:08
DX: B34.9 Viral infection, unspecified (principal); Z11.52 Encounter for screening for COVID-19
CPT/HCPCS: 36415; 71045; 87070; 87428; 96372; 99284; J7512; Q0162